=== PATIENT | male | born 1960 | race African-American/Black ===

== ENCOUNTER 2017-04-23 17:04 | Emergency (ER) | payer OTHER ==
[~2017-04-23] VITALS: Ht 175.3 cm; Wt 70.3 kg
[~2017-04-23 17:04] MED LIST: ATORVASTATIN CA10 MG PO; CARVEDILOL12.5 MG PO; LISINOPRIL10 MG PO; NORVIR100 M1 PO; REYATAZ 300MG300 MG PO; STROVITE ONE1 TAB PO; TRUVADA 200 MG-1 TAB PO
--- NOTE | 2017-04-23 17:55 | RADIOLOGY REPORT ---
EXAMINATION: XR FOOT, RIGHT CLINICAL INFORMATION: Pain, puncture wound. COMPARISON: None TECHNIQUE: AP, lateral, and oblique views of the right foot. FINDINGS: No radiopaque foreign bodies are identified. Bone mineral density is maintained without evidence of fracture or dislocation. No focal osseous lesions are seen. Joint space is maintained without productive or erosive changes. IMPRESSION: Unremarkable examination.
--- NOTE | 2017-04-23 19:27 | ED ANKLE/FOOT INJURY COMPLAINT ---
History of Present Illness General Chief Complaint: Lower Extremity Problems Stated Complaint: RIGHT FOOT PAIN AND SWELLING Source: patient Exam Limitations: no limitations Vital Signs & Intake/Output Vital Signs & Intake/Output Vital Signs Date Time Temp Pulse Resp B/P B/P Pulse O2 O2 Flow FiO2 Mean Ox Delivery Rate 04/23 1944 98.5 75 18 152/76 98 Room Air Room Air 04/23 1720 98.6 76 18 161/87 98 Room Air Allergies Coded Allergies: NO KNOWN ALLERGIES (03/28/12) Reconcile Medications Atazanavir Sulfate (Reyataz) 300 MG CAPSULE 1 CAP PO DAILY UNKNOWN (Reported) with food Atorvastatin Calcium (Lipitor) 10 MG TABLET 1 TAB PO DAILY CHOLESTEROL ( Reported) Carvedilol 12.5 MG TABLET 1 TAB PO BID heart (Reported) Emtricitabine/Tenofovir Diso (Truvada) 1 TAB TAB 1 TAB PO DAILY UNKNOWN ( Reported) Lisinopril 10 MG TABLET 1 TAB PO DAILY BP R/T KIDNEY (Reported) MV,MIN #10/FA/D3/ALIP ACID/LUT (Strovite One Caplet) 1 MG-1,000 UNIT-15 MG-5 MG TABLET 1 TAB PO DAILY HIV (Reported) Ritonavir (Norvir) 100 MG TAB 1 TAB PO DAILY HIV (Reported) Triage Note: 56 YO MALE TO TRIAGE C/O R FOOT PAIN/SWELLING. STATES HE STEPPED ON A NAIL ON SATURDAY. NOTED WITH SWELLING TO R FOOT. PT UNSURE OF LAST TETANUS Triage Nurses Notes Reviewed? yes Occurred: last week Duration: day(s): (6), constant, continues in ED Timing: recent history No Modifying Factors: none HPI: 56-year-old male comes into emergency room for further evaluation of puncture wound to right foot. Patient reports that he stepped on a nail last week 6 days ago. He is had a mild pain to where the puncture wound was. Reports some mild swelling but denies any redness fever chills. Patient comes in to have it further evaluated today. Denies any other associated symptoms. Past History Travel History Traveled to [place] past 21 day No Medical History Any Pertinent Medical History? see below for history Neurological: NONE EENT: NONE Cardiovascular: BRADYCARDIA Respiratory: NONE Gastrointestinal: NONE Hepatic: NONE Renal: NONE Musculoskeletal: NONE Psychiatric: NONE Endocrine: NONE Blood Disorders: NONE Cancer(s): NONE PROCESS INSPECTOR/Reproductive: NONE Surgical History Surgical History: non-contributory Psychosocial History What is your primary language Pakistani Tobacco Use: Never used Family History Hx Contributory? No Review of Systems Review of Systems Constitutional: Reports: no symptoms. EENTM: Reports: no symptoms. Respiratory: Reports: no symptoms. Cardiovascular: Reports: no symptoms. GI: Reports: no symptoms. Genitourinary: Reports: no symptoms. Musculoskeletal: Reports: see HPI. Skin: Reports: see HPI. Neurological/Psychological: Reports: no symptoms. Hematologic/Endocrine: Reports: no symptoms. Immunologic/Allergic: Reports: no symptoms. All Other Systems: Reviewed and Negative Physical Exam Physical Exam General Appearance: well developed/nourished, mild distress Head: atraumatic Eyes: Bilateral: normal appearance. Ears, Nose, Throat: normal ENT inspection, hearing grossly normal Neck: normal inspection Cardiovascular/Respiratory: no respiratory distress Back: normal inspection Leg/Knee/Thigh Left: normal inspection Ankle Right: normal range of motion Foot Right: small puncture wound base of right foot, no erythema, no warmth, herself pedis pulse intact, Neuro/Vascular: normal motor function, normal sensation Psychiatric: awake, alert, oriented x 3 Skin: intact, normal color, warm/dry Progress Differential Diagnosis: cellulitis, septic arthritis, gout, fracture, dislocation, compartmental syndrome, foreign body, Pseudomonas infection, Plan of Care: 04/23/2017 8:19:12 PM There is no signs of infection on exam. Due to the fact that it has been 6 days now antibodies will be provided at this time. Tetanus shot was updated. Motrin. Ice. Follow-up with roustabout as needed. Return if any other concerns. Patient understands and agrees with plan of care. Departure Departure Disposition: HOME OR SELF CARE Condition: Stable Clinical Impression Primary Impression: Puncture wound of right foot Referrals: UNKNOWN (PCP/Family) Additional Instructions: Watch for signs of infection such as redness on discharge. Chills. Return if any concerns worsening symptoms. Please go over all results of today's visit with your primary care doctor. Contact your primary care doctor to let them know you were here in the emergency room. There may be nonspecific findings which may not be related to your visit today here in the emergency room but may require further evaluation and chronic monitoring by your primary care doctor. If you had a laceration today the chance of foreign body always remains. You should follow-up with your primary care doctor for recheck in 3-5 days for a wound check. If you had an x-ray done there is a chance that a fracture could have been missed on initial read and you should follow-up with your primary care doctor for repeat x-rays if symptoms persist. If your blood pressure was elevated here in the emergency room please have rechecked by her primary care doctor within the next 48 hours by your primary care doctor. If you were prescribed a narcotic here in the emergency room or any type of controlled substances you're not allowed to drive while taking this medication or operate any type of heavy machinery. Narcotics can make you feel lightheaded dizziness nausea and can cause constipation. You may need to picker and packer a stool softener. Thank you for choosing [facility] emergency room. Please return to the emergency room immediately if you have any other concerns worsening of symptoms. Departure Forms: Customer Survey General Discharge Information
[2017-04-23 19:44] VITALS: BP 152/76
== END 2017-04-23 19:45 ==
LOC: ERH 17:04
DX: S91.331A Puncture wound without foreign body, right foot, initial encounter (principal); W45.0XXA Nail entering through skin, initial encounter; Y93.9 Activity, unspecified; Y92.9 Unspecified place or not applicable
CPT/HCPCS: 73630-RT; 90471; 90714